=== PATIENT | male | born 1955 | race African-American/Black ===

== ENCOUNTER 2018-04-14 07:32 | Emergency (ER) | payer OTHER ==
[2018-04-14 07:52] VITALS: BMI 25.0
--- NOTE | 2018-04-14 09:05 | PDOC ---
Attending Attestation - Resident Resident Name: Quintin Smith - ED Attending Attestation I have performed the following: I have examined & evaluated the patient, The case was reviewed & discussed with the resident, I agree w/resident's findings & plan, Exceptions are as noted - HPI HPI: 04/14/18 09:02 62y M hx of dm, presents with complaint of knee pain and flank pain. L knee pain: few days of pain, decrease range of motion, no leg swelling, no calf pain, no associated sob, hemoptysis - had done R flank pain: pain when he takes a deep breath x 3 days, worse when he is twisting/turning in bed and lifting his R arm, no associated sob, hemoptysis, larios pt presents today due to the pain not resolving on exam pt appears a bit dischevelled abd soft nontender no focal tenderness on his back/flank/knee or anywhere else. no edema normal ROM of extremities will obtain xray of chest tjo r/o pna or fx no signs of sweling, neg homans to suggest dvt no focal tendeness to suggest bony injury, suspect possible oa/overuse. will give pain meds will dc with pmd fu - Physicial Exam PE: 04/15/18 07:38 see above - Medical Decision Making 04/14/18 12:23 labs reviewed noted for mildly elevated bgm, pt notes he does not take his metformin. cxr neg for fx pt feeling improved will dc with pmd fu return precautions were discussed I discussed the physical exam findings, ancillary test results and final diagnoses with the patient. I answered all of the patient's questions. The patient was satisfied with the care received and felt comfortable with the discharge plan and treatment plan. The patient will call their primary care physician within 24 hours to arrange follow-up and will return to the Emergency Department with any new, persistent or worsening symptoms.
--- NOTE | 2018-04-14 09:13 | PDOC ---
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 Flank pain is exacerbated when he takes a deep breath and when moving from lying to sitting position. Takes percocet daily for chronic knee pain. Admits to 20lbs weight loss for the past 2 months. Past History - Past Medical History Allergies/Adverse Reactions: Allergies Allergy/AdvReac Type Severity Reaction Status Date / Time No Known Allergies Allergy Verified 04/14/18 07:48 Home Medications: Ambulatory Orders Metformin HCl [Glucophage] 1,000 mg PO DAILY 04/14/18 CVA: No COPD: No GI Disorders: Yes (SIGMOID COLON REMOVED.RUPTURED) HTN: Yes - Surgical History Abdominal Surgery: Yes (SIGMOID COLON REMOVED) - Immunization History Immunization Up to Date: Yes - Suicide/Smoking/Psychosocial Hx Smoking Status: Yes Smoking History: Current every day smoker Number of Cigarettes Smoked Daily: 20 Information on smoking cessation initiated: No Hx Alcohol Use: No Drug/Substance Use Hx: No Substance Use Type: None Review of Systems - Review of Systems Able to Perform ROS?: Yes Is the patient limited [place]anian proficient: No Constitutional: Yes: Loss of Appetite, Unintentional Wgt. Loss, Unexplained wgt Loss HEENTM: No: Symptoms Reported Respiratory: No: Symptoms reported Cardiac (ROS): No: Symptoms Reported ABD/GI: No: Symptoms Reported Musculoskeletal: Yes: See HPI Integumentary: No: Symptoms Reported Neurological: No: Symptoms reported All Other Systems: Reviewed and Negative *Physical Exam - Vital Signs Last Vital Signs Temp Pulse Resp BP Pulse Ox 99.1 F 104 H 16 135/70 96 04/14/18 07:48 04/14/18 07:48 04/14/18 07:48 04/14/18 07:48 04/14/18 07:48 - Physical Exam General Appearance: Yes: Disheveled, Thin HEENT: positive: EOMI, TOBY, Normal ENT Inspection Respiratory/Chest: positive: Lungs Clear, Normal Breath Sounds, Other (some tenderness along lower right ribs). negative: Chest Tender, Respiratory Distress Cardiovascular: positive: Regular Rhythm, Regular Rate, S1, S2 Gastrointestinal/Abdominal: positive: Normal Bowel Sounds, Flat, Soft, Other. negative: Tender Musculoskeletal: positive: Normal Inspection. negative: CVA Tenderness Extremity: positive: Other (no leg swelling. ) Integumentary: positive: Normal Color, Dry Neurologic: positive: Fully Oriented, Alert, Normal Response ED Treatment Course - LABORATORY CBC & Chemistry Diagram: 04/14/18 09:12 04/14/18 09:16 Medical Decision Making - Medical Decision Making 04/14/18 09:57 62m complain of right flank pain and left knee pain Will send labs 04/14/18 10:27 CXR: Unremarkable examination without evidence of acute lung disease. 04/14/18 12:52 Patient blood glucose 308 doesn't take his metformin. Counseled about importance of treating his diabetes. 1L NS and toradol dc *DC/Admit/Observation/Transfer Diagnosis at time of Disposition: Hyperglycemia - Referrals Referrals: Guanakito Vaughan MD [Primary Care Provider] - - Patient Instructions Printed Discharge Instructions: DI for Knee Pain Additional Instructions: Follow up with Dr. Guanakito Vaughan for your diabetes within 2 days. Call him as soon as you're discharged. Come back to the ER for any new, worsening or concerning symptoms. - Post Discharge Activity
[2018-04-14] MEDS ORDERED: SODIUM CHLORIDE 1,000 ML IV STA (09:14)
[2018-04-14 09:46] LABS: BASO % 1.1 % (0-2.0); EOS % 1.5 % (0-4.5); HEMATOCRIT 42.6 % (35.4-49); HEMOGLOBIN 14.3 GM/dL (11.7-16.9); LYMPH % 26.7 % (8-40); MCH 28.9 pg (25.7-33.7); MCHC 33.6 g/dl (32.0-35.9); MEAN CELL VOLUME 85.9 fl (80-96); MEAN PLT VOLUME 8.8 fl (7.5-11.1); MONO % 10.9 % (3.8-10.2); NEUT % 59.8 % (42.8-82.8); PLATELET COUNT 183 K/MM3 (134-434); RBC 4.95 M/mm3 (4.00-5.60); RDW 14.6 % (11.9-15.9); WHITE BLOOD COUNT 8.4 K/mm3 (4.0-10.0)
[2018-04-14 09:58] LABS: URINE APPEARANCE CLEAR; URINE BILIRUBIN NEGATIVE (<2.0 mg/dL); URINE BLOOD NEGATIVE (NEGATIVE); URINE COLOR YELLOW; URINE GLUCOSE (UA) 3+ (NEGATIVE); URINE KETONE TRACE (NEGATIVE); URINE LEUK ESTERASE NEGATIVE (NEGATIVE); URINE NITRITE NEGATIVE (NEGATIVE); URINE PROTEIN NEGATIVE (NEGATIVE); URINE UROBILINOGEN NEGATIVE mg/dL (0.2-1.0)
[2018-04-14 10:10] LABS: ALBUMIN 3.7 g/dl (3.4-5.0); BILIRUBIN,TOTAL 0.5 mg/dL (0.2-1.0); BLOOD UREA NITROGEN 11 mg/dL (7-18); CALCIUM 9.5 mg/dL (8.5-10.1); CHLORIDE 101 mmol/L (98-107); POTASSIUM 4.3 mmol/L (3.5-5.1); SGOT/AST 9 U/L (15-37); SGPT/ALT 21 U/L (12-78); SODIUM 137 mmol/L (136-145)
[2018-04-14 10:12] LABS: ALK PHOS 125 U/L (45-117); TOT PROT 7.2 g/dl (6.4-8.2)
[2018-04-14 10:53] LABS: GLUCOSE,RANDOM 308 mg/dL (74-106)
[2018-04-14] MEDS ORDERED: KETOROLAC TROMETHAMINE 15 MG/ML VIAL IVPUSH ONE (11:43)
[2018-04-14] MEDS ORDERED: KETOROLAC TROMETHAMINE 15 MG/ML VIAL ONE (12:03)
[2018-04-14 12:15] VITALS: TEMP 98.6
[2018-04-14 12:34] LABS: ANION GAP 9 (8-16); CO2 27 mmol/L (21-32)
[2018-04-14 13:44] VITALS: BP 134/86; PULSE 81
== END 2018-04-14 14:01 | disposition home or self-care (01) ==
LOC: JER 07:32
PROC: 3E0337Z Introduction of Electrolytic and Water Balance Substance into Peripheral Vein, Percutaneous Approach (ICD-10-PCS; principal; 2018-04-14)
PROC: 3E0333Z Introduction of Anti-inflammatory into Peripheral Vein, Percutaneous Approach (ICD-10-PCS; 2018-04-14)
DX: R10.31 Right lower quadrant pain (principal); M25.562 Pain in left knee; E11.65 Type 2 diabetes mellitus with hyperglycemia; Z79.84 Long term (current) use of oral hypoglycemic drugs; Z91.14 Patient's other noncompliance with medication regimen; Z90.49 Acquired absence of other specified parts of digestive tract
CPT/HCPCS: 36415; 71046-TC-FY; 80053; 81003; 82962; 85025; 96361; 96374; 99283-25; J7030

== ENCOUNTER 2022-06-20 22:40 | Emergency (ER) | payer OTHER ==
[2022-06-20 23:00] VITALS: BP 145/64; PULSE 84; RESP 20; TEMP 97.9; BMI 24.4
[2022-06-21 01:02] LABS: BASO % 1.5 % (0-2.0); EOS % 2.7 % (0-4.5); HEMATOCRIT 42.1 % (35.4-49); HEMOGLOBIN 14.1 GM/dL (11.7-16.9); LYMPH % 39.6 % (8-40); MCH 28.5 pg (25.7-33.7); MCHC 33.4 g/dl (32.0-35.9); MEAN CELL VOLUME 85.3 fl (80-96); MEAN PLT VOLUME 7.9 fl (7.5-11.1); MONO % 7.5 % (3.8-10.2); NEUT % 48.7 % (42.8-82.8); PLATELET COUNT 228 10^3/uL (134-434); RBC 4.94 M/mm3 (4.00-5.60); RDW 15.7 % (11.9-15.9); WHITE BLOOD COUNT 7.3 K/mm3 (4.0-10.0)
[2022-06-21 01:08] LABS: URINE APPEARANCE CLEAR; URINE BILIRUBIN NEGATIVE (NEGATIVE); URINE COLOR YELLOW; URINE GLUCOSE (UA) NEGATIVE (NEGATIVE); URINE KETONE TRACE (NEGATIVE); URINE LEUK ESTERASE NEGATIVE (NEGATIVE); URINE NITRITE NEGATIVE (NEGATIVE); URINE PROTEIN NEGATIVE (NEGATIVE); URINE UROBILINOGEN 0.2 mg/dL (0.2-1.0)
[2022-06-21 01:10] LABS: INR 0.99 (0.83-1.09); PROTHROMBIN TIME (PATIENT) 11.4 SEC (9.7-13.0)
[2022-06-21 01:12] LABS: ACTIVATED PTT 31.7 SECONDS (25.2-36.5)
[2022-06-21 01:25] LABS: BLOOD UREA NITROGEN 11.2 mg/dL (7-18); CALCIUM 9.3 mg/dL (8.5-10.1)
[2022-06-21 01:27] LABS: CREATININE 1.1 mg/dL (0.55-1.3)
[2022-06-21 01:29] LABS: BILIRUBIN,TOTAL 0.4 mg/dL (0.2-1); TOT PROT 7.6 g/dl (6.4-8.2)
== END 2022-06-21 03:38 | disposition left against medical advice (07) ==
LOC: JER 22:40
DX: R10.84 Generalized abdominal pain (principal)
CPT/HCPCS: 0241U-QW; 36415; 80053; 81003; 83605; 84484; 85025; 85610; 85730; 87086; 93005; 93010; 99284-25

== ENCOUNTER 2025-04-24 14:40 | Inpatient (IN) | payer OTHER ==
[2025-04-24] MEDS ORDERED: ACETAMINOPHEN INJECTION 100 ML ONE (16:57)
[2025-04-24] MEDS ORDERED: VANCOMYCIN 1 GM PREMIX (F) 1 GM/200 ML BAG ONE (16:57)
[2025-04-24] MEDS: ACETAMINOPHEN 1000 MG/100 ML BAG IVPB ONE (17:16)
[2025-04-24] MEDS: VANCOMYCIN 1,000 MG in DEXTROSE 5%-WATER - 250 ML IVPB ONE (17:16)
[2025-04-24] MEDS ORDERED: PIPERACILLIN/TAZOB 4.5 GM 4.5 GM/100 ML BAG IVPB ONE (18:34)
[2025-04-24 18:37] LABS: BASOPHILS # 0.05 x10^3/uL (0.01-0.08); MEAN PLT VOLUME 10.5 fl (9.4-12.4)
[2025-04-24 18:39] LABS: ABSOLUTE IMMATURE GRANULOCYTES 0.02 x10^3/uL (0.0-0.031); EOSINOPHIL % 1.3 % (0.8-7.0); EOSINOPHILS # 0.11 x10^3/uL (0.04-0.54); MCHC 34.0 g/dl (32.3-36.5); MEAN CELL VOLUME 83.7 fl (79.0-92.2); MONOCYTE # 0.71 x10^3/uL (0.30-0.82); MONOCYTE % 8.4 % (5.3-12.2); RDW 14.0 % (12.2-16.4)
[2025-04-24] MEDS: PIPERACILLIN/TAZOB 4.5 GM 4.5 GM/100 ML BAG IVPB ONE (18:41)
[2025-04-24 18:54] LABS: INR 1.09 (0.83-1.09); PROTHROMBIN TIME (PATIENT) 12.0 SEC (9.7-13.0)
[2025-04-24 18:57] LABS: ACTIVATED PTT 27.7 SECONDS (25.2-36.5)
[2025-04-24 19:32] LABS: ERYTHROCYTE SEDIMENTATION RATE 31 mm/hr (0-20)
[2025-04-24 19:48] LABS: HCV DIAGNOSTIC IN-HOUSE W/RFLX NON-REACTIVE (NONREACTIVE); HIV INTERPRETATION NEGATIVE (NEGATIVE)
[2025-04-24 20:33] LABS: GLUCOSE,RANDOM 363.0 mg/dL (74-106)
[2025-04-24 20:34] LABS: CO2 24.0 mmol/L (21-32)
[2025-04-24 20:36] LABS: CREATININE 1.0 mg/dL (0.55-1.3)
[2025-04-24 20:37] LABS: SGOT/AST 15.0 U/L (15-37); SGPT/ALT 17.0 U/L (13-61)
[2025-04-24 20:38] LABS: TOT PROT 6.6 g/dl (6.4-8.2)
[2025-04-24 20:39] LABS: ALK PHOS 150.0 U/L (45-117)
[2025-04-24] MEDS ORDERED: DOCUSATE SODIUM 100 MG CAPSULE (FP) PO PRN (21:50)
[2025-04-24] MEDS ORDERED: INSULIN ASPART SLIDING SCALE (NOVOLOG) 1 VIAL SQ ONE (22:40)
[2025-04-24] MEDS: INSULIN ASPART SLIDING SCALE (NOVOLOG) 1 VIAL SQ SCH (22:41)
[2025-04-25 00:04] VITALS: BMI 21.7
[2025-04-25] MEDS: ACETAMINOPHEN 1000 MG/100 ML BAG IVPB PRN (01:39)
[2025-04-25] MEDS: PIPERACILLIN/TAZOB 3.375 GM 3.375 GM in DEXTROSE 5%-WATER - 50 ML IVPB SCH ×3 (02:08→19:01)
[2025-04-25] MEDS: VANCOMYCIN/WATER FOR INJ (PEG) 1 GM/200 ML BAG IVPB SCH (05:18)
[2025-04-25] MEDS: EMPAGLIFLOZIN (JARDIANCE) 25 MG TABLET PO SCH (06:31)
[2025-04-25 08:35] LABS: MCHC 33.3 g/dl (32.3-36.5); MEAN CELL VOLUME 84.6 fl (79.0-92.2); MEAN PLT VOLUME 10.0 fl (9.4-12.4); RDW 13.7 % (12.2-16.4)
[2025-04-25 08:53] LABS: CO2 27.0 mmol/L (21-32); GLUCOSE,RANDOM 274.0 mg/dL (74-106)
[2025-04-25 08:56] LABS: CREATININE 0.9 mg/dL (0.55-1.3)
[2025-04-25] MEDS: ENOXAPARIN NA (PORCINE) 40 MG/0.4 ML DISP.SYRIN SQ SCH (10:51)
[2025-04-25] MEDS: NICOTINE 21 MG/24 HOURS TOPICAL PATCH TD SCH (15:31)
[2025-04-25] MEDS: VANCOMYCIN 1,000 MG in DEXTROSE 5%-WATER - 250 ML IVPB SCH (15:36)
[2025-04-25] MEDS: DOXYCYCLINE HYCLATE 100 MG CAPSULE PO SCH (17:46)
[2025-04-25] MEDS: GABAPENTIN 300 MG CAPSULE PO SCH (21:34)
[2025-04-25] MEDS: KETOROLAC TROMETHAMINE 15 MG/ML VIAL IVPUSH ONE (23:55)
[2025-04-26] MEDS: KETOROLAC TROMETHAMINE 15 MG/ML VIAL IM ONE (00:43)
[2025-04-26] MEDS: metFORMIN HCL 500 MG TABLET (FP) PO SCH (06:21)
[2025-04-26 08:05] LABS: ABSOLUTE IMMATURE GRANULOCYTES 0.02 x10^3/uL (0.0-0.031); BASOPHILS # 0.05 x10^3/uL (0.01-0.08); EOSINOPHIL % 2.3 % (0.8-7.0); EOSINOPHILS # 0.14 x10^3/uL (0.04-0.54); MCHC 32.8 g/dl (32.3-36.5); MEAN CELL VOLUME 85.8 fl (79.0-92.2); MEAN PLT VOLUME 9.9 fl (9.4-12.4); MONOCYTE # 0.51 x10^3/uL (0.30-0.82); MONOCYTE % 8.3 % (5.3-12.2); RDW 13.9 % (12.2-16.6)
[2025-04-26 08:36] LABS: CO2 29.0 mmol/L (21-32); GLUCOSE,RANDOM 224.0 mg/dL (74-106)
[2025-04-26 08:39] LABS: CREATININE 1.0 mg/dL (0.55-1.3); SGOT/AST 11.0 U/L (15-37); SGPT/ALT 15.0 U/L (13-61); TOT PROT 5.9 g/dl (6.4-8.2)
[2025-04-26 08:43] LABS: ALK PHOS 117.0 U/L (45-117)
[2025-04-26] MEDS ORDERED: PATIENT'S OWN MEDICATION (NON-FORMULARY) (Empagliflozin 25 MG Tablet) PO SCH (10:00)
[2025-04-26] MEDS: COLLAGENASE CLOSTRIDIUM HIST. 30 GRAMS TUBE TP SCH (10:36)
[2025-04-26] MEDS: DOXYCYCLINE HYCLATE 100 MG TABLET PO SCH (11:07)
[2025-04-26] MEDS: ACETAMINOPHEN 325 MG TABLET (FP) PO ONE (14:19)
[2025-04-27] MEDS: ACETAMINOPHEN 1000 MG/100 ML BAG IVPB PRN (02:33)
[2025-04-27 16:48] LABS: ABSOLUTE IMMATURE GRANULOCYTES 0.03 x10^3/uL (0.0-0.031); BASOPHILS # 0.06 x10^3/uL (0.01-0.08); EOSINOPHIL % 2.6 % (0.8-7.0); EOSINOPHILS # 0.19 x10^3/uL (0.04-0.54); MCHC 32.9 g/dl (32.3-36.5); MEAN CELL VOLUME 86.2 fl (79.0-92.2); MEAN PLT VOLUME 10.4 fl (9.4-12.4); MONOCYTE # 0.73 x10^3/uL (0.30-0.82); MONOCYTE % 9.8 % (5.3-12.2); RDW 14.2 % (12.2-16.6)
[2025-04-27 17:18] LABS: CO2 29.0 mmol/L (21-32); GLUCOSE,RANDOM 155.0 mg/dL (74-106)
[2025-04-27 17:21] LABS: CREATININE 1.2 mg/dL (0.55-1.3); SGOT/AST 21.0 U/L (15-37); SGPT/ALT 26.0 U/L (13-61)
[2025-04-27 17:23] LABS: TOT PROT 6.7 g/dl (6.4-8.2)
[2025-04-27 17:46] LABS: ALK PHOS 148.0 U/L (45-117)
[2025-04-28] MEDS: DIPHENOXYLATE 2.5/ATROPINE.025 1 COMBO TABLET PO ONE (01:01)
[2025-04-28] MEDS: KETOROLAC TROMETHAMINE 15 MG/ML VIAL IVPUSH ONE (05:57)
[2025-04-28 08:21] LABS: MCHC 32.3 g/dl (32.3-36.5); MEAN CELL VOLUME 86.1 fl (79.0-92.2); MEAN PLT VOLUME 10.1 fl (9.4-12.4); RDW 14.2 % (12.2-16.6)
[2025-04-28 08:34] LABS: GLUCOSE,RANDOM 160.0 mg/dL (74-106)
[2025-04-28 08:35] LABS: CO2 29.0 mmol/L (21-32)
[2025-04-28 08:37] LABS: CREATININE 1.1 mg/dL (0.55-1.3)
[2025-04-28 08:38] LABS: SGOT/AST 21.0 U/L (15-37); SGPT/ALT 27.0 U/L (13-61)
[2025-04-28 08:40] LABS: TOT PROT 5.9 g/dl (6.4-8.2)
[2025-04-28 08:42] LABS: ALK PHOS 111.0 U/L (45-117)
[2025-04-28] MEDS: LACTOBACILLUS ACIDOPHILUS 1 TABLET PO SCH (09:03)
[2025-04-28] MEDS: MULTIVITAMINS (DAILY MVI) TABLET (FP) PO SCH (09:03)
[2025-04-28] MEDS: INSULIN GLARGINE (LANTUS) 100 UNITS/ML UNITS SQ SCH (21:42)
[2025-04-29 07:32] LABS: MCHC 33.1 g/dl (32.3-36.5); MEAN CELL VOLUME 86.6 fl (79.0-92.2); MEAN PLT VOLUME 10.1 fl (9.4-12.4); RDW 14.1 % (12.2-16.6)
[2025-04-29 07:57] LABS: CO2 29.0 mmol/L (21-32); GLUCOSE,RANDOM 194.0 mg/dL (74-106)
[2025-04-29 08:00] LABS: CREATININE 1.1 mg/dL (0.55-1.3); SGOT/AST 44.0 U/L (15-37); SGPT/ALT 45.0 U/L (13-61)
[2025-04-29 08:02] LABS: TOT PROT 5.9 g/dl (6.4-8.2)
[2025-04-29 08:03] LABS: ALK PHOS 106.0 U/L (45-117)
[2025-04-29] MEDS ORDERED: LIDOCAINE HCL 1%, 10 MG/ML (20ML VIAL) ONE (14:10)
[2025-04-29] MEDS ORDERED: HEPARIN NA (PORCINE) 5,000 UNITS/ML 1ML VIAL ONE ×2 (14:10→15:55)
[2025-04-29] MEDS ORDERED: PROPOFOL 60 ML ONE (15:16)
[2025-04-29] MEDS ORDERED: MIDAZOLAM HCL 2 MG/2 ML SINGLE DOSE VIAL ONE (15:16)
[2025-04-29] MEDS: LIDOCAINE HCL 1%, 10 MG/ML (20ML VIAL) NR ONE ×2 (15:44)
[2025-04-29] MEDS ORDERED: DOCUSATE SODIUM 100 MG CAPSULE (FP) PO PRN (17:13)
[2025-04-29] MEDS ORDERED: CLOPIDOGREL BISULFATE 75 MG TABLET (FP) ONE (17:32)
[2025-04-29] MEDS ORDERED: ACETAMINOPHEN INJECTION 100 ML ONE (17:32)
[2025-04-29] MEDS: CLOPIDOGREL BISULFATE 75 MG TABLET (FP) PO SCH (17:34)
[2025-04-29] MEDS: ACETAMINOPHEN 1000 MG/100 ML BAG IVPB ONE (17:34)
[2025-04-29] MEDS: LACTATED RINGERS SOLUTION 1,000 ML IV SCH (17:35)
[2025-04-29] MEDS ORDERED: ASPIRIN 81 MG CHEWABLE TABLETS ONE (17:37)
[2025-04-29] MEDS: ASPIRIN 81 MG CHEWABLE TABLETS PO SCH (17:37)
[2025-04-29] MEDS: PIPERACILLIN/TAZOB 3.375 GM 3.375 GM in DEXTROSE 5%-WATER - 50 ML IVPB SCH (18:11)
[2025-04-29] MEDS: DOXYCYCLINE HYCLATE 100 MG TABLET PO SCH (18:11)
[2025-04-29] MEDS: GABAPENTIN 300 MG CAPSULE PO SCH (21:59)
[2025-04-29] MEDS: INSULIN GLARGINE (LANTUS) 100 UNITS/ML UNITS SQ SCH (23:21)
[2025-04-29] MEDS: INSULIN ASPART SLIDING SCALE (NOVOLOG) 1 VIAL SQ SCH (23:22)
[2025-04-29] MEDS: ACETAMINOPHEN 1000 MG/100 ML BAG IVPB PRN (23:28)
[2025-04-30] MEDS: EMPAGLIFLOZIN (JARDIANCE) 25 MG TABLET PO SCH (07:17)
[2025-04-30 08:07] LABS: MCHC 32.7 g/dl (32.3-36.5); MEAN CELL VOLUME 86.5 fl (79.0-92.2); MEAN PLT VOLUME 10.1 fl (9.4-12.4); RDW 14.3 % (12.2-16.6)
[2025-04-30 08:30] LABS: GLUCOSE,RANDOM 152.0 mg/dL (74-106)
[2025-04-30 08:31] LABS: CO2 29.0 mmol/L (21-32)
[2025-04-30 08:34] LABS: CREATININE 1.0 mg/dL (0.55-1.3); SGOT/AST 36.0 U/L (15-37); SGPT/ALT 46.0 U/L (13-61)
[2025-04-30 08:35] LABS: TOT PROT 5.5 g/dl (6.4-8.2)
[2025-04-30 08:37] LABS: ALK PHOS 90.0 U/L (45-117)
[2025-04-30] MEDS: MULTIVITAMINS (DAILY MVI) TABLET (FP) PO SCH (09:42)
[2025-04-30] MEDS: LACTOBACILLUS ACIDOPHILUS 1 TABLET PO SCH (09:42)
[2025-04-30] MEDS: ENOXAPARIN NA (PORCINE) 40 MG/0.4 ML DISP.SYRIN SQ SCH (09:45)
[2025-04-30] MEDS: NICOTINE 21 MG/24 HOURS TOPICAL PATCH TD SCH (09:45)
[2025-04-30] MEDS: COLLAGENASE CLOSTRIDIUM HIST. 30 GRAMS TUBE TP SCH (14:12)
[2025-05-01 08:02] LABS: ABSOLUTE IMMATURE GRANULOCYTES 0.02 x10^3/uL (0.0-0.031); BASOPHILS # 0.03 x10^3/uL (0.01-0.08); EOSINOPHIL % 2.7 % (0.8-7.0); EOSINOPHILS # 0.18 x10^3/uL (0.04-0.54); MCHC 32.6 g/dl (32.3-36.5); MEAN CELL VOLUME 85.8 fl (79.0-92.2); MEAN PLT VOLUME 10.1 fl (9.4-12.4); MONOCYTE # 0.81 x10^3/uL (0.30-0.82); MONOCYTE % 12.0 % (5.3-12.2); RDW 14.4 % (12.2-16.6)
[2025-05-01 08:47] LABS: CO2 27.0 mmol/L (21-32); GLUCOSE,RANDOM 94.0 mg/dL (74-106)
[2025-05-01 08:50] LABS: CREATININE 0.8 mg/dL (0.55-1.3); SGOT/AST 25.0 U/L (15-37); SGPT/ALT 42.0 U/L (13-61)
[2025-05-01 08:52] LABS: ALK PHOS 86.0 U/L (45-117)
[2025-05-01 08:53] LABS: TOT PROT 5.5 g/dl (6.4-8.2)
[2025-05-01] MEDS ORDERED: LIDOCAINE HCL/PF 2% SDV 5ML VIAL ONE (10:40)
[2025-05-01] MEDS ORDERED: MIDAZOLAM HCL 2 MG/2 ML SINGLE DOSE VIAL ONE (10:40)
[2025-05-01] MEDS ORDERED: PROPOFOL 20 ML ONE ×2 (10:40→11:19)
[2025-05-01] MEDS ORDERED: ONDANSETRON 4 MG/2 ML VIAL IVPUSH PRN ×2 (10:49→12:25)
[2025-05-01] MEDS ORDERED: PROMETHAZINE HCL 25 MG/1 ML VIAL IVPB PRN ×2 (10:49→12:25)
[2025-05-01] MEDS ORDERED: LIDOCAINE HCL 1%, 10 MG/ML (20ML VIAL) ONE (11:01)
[2025-05-01] MEDS ORDERED: BUPIVACAINE HCL/PF 0.5% (5MG/ML) 10 ML VIAL ONE (11:02)
[2025-05-01] MEDS: LIDOCAINE HCL 1%, 10 MG/ML (20ML VIAL) INF ONE (12:11)
[2025-05-01] MEDS ORDERED: DOCUSATE SODIUM 100 MG CAPSULE (FP) PO PRN (12:25)
[2025-05-01] MEDS ORDERED: LACTATED RINGERS SOLUTION 1,000 ML IV SCH (12:25)
[2025-05-01] MEDS: LACTATED RINGERS SOLUTION 1,000 ML IV SCH (14:21)
[2025-05-01] MEDS: ASPIRIN 81 MG CHEWABLE TABLETS PO ONE (15:16)
[2025-05-01] MEDS: CLOPIDOGREL BISULFATE 75 MG TABLET (FP) PO ONE (15:16)
[2025-05-01] MEDS: GABAPENTIN 300 MG CAPSULE PO SCH (15:16)
[2025-05-01] MEDS: PIPERACILLIN/TAZOB 3.375 GM 3.375 GM in DEXTROSE 5%-WATER - 50 ML IVPB SCH (18:05)
[2025-05-01] MEDS: INSULIN ASPART SLIDING SCALE (NOVOLOG) 1 VIAL SQ SCH (18:05)
[2025-05-01] MEDS: DOXYCYCLINE HYCLATE 100 MG TABLET PO SCH (18:06)
[2025-05-01] MEDS: INSULIN GLARGINE (LANTUS) 100 UNITS/ML UNITS SQ SCH (21:31)
[2025-05-02] MEDS: EMPAGLIFLOZIN (JARDIANCE) 25 MG TABLET PO SCH (06:05)
[2025-05-02] MEDS: ACETAMINOPHEN 1000 MG/100 ML BAG IVPB PRN (09:58)
[2025-05-02] MEDS: CLOPIDOGREL BISULFATE 75 MG TABLET (FP) PO SCH (09:59)
[2025-05-02] MEDS: ENOXAPARIN NA (PORCINE) 40 MG/0.4 ML DISP.SYRIN SQ SCH (09:59)
[2025-05-02] MEDS: MULTIVITAMINS (DAILY MVI) TABLET (FP) PO SCH (09:59)
[2025-05-02] MEDS: LACTOBACILLUS ACIDOPHILUS 1 TABLET PO SCH (09:59)
[2025-05-02] MEDS: NICOTINE 21 MG/24 HOURS TOPICAL PATCH TD SCH (09:59)
[2025-05-02] MEDS: COLLAGENASE CLOSTRIDIUM HIST. 30 GRAMS TUBE TP SCH (10:00)
[2025-05-02] MEDS: ASPIRIN 81 MG CHEWABLE TABLETS PO SCH (10:00)
[2025-05-03] MEDS: AMOX TR/POT CLAV 500MG/125MG TABLETS (FP) PO SCH (12:17)
[2025-05-05 08:52] LABS: ABSOLUTE IMMATURE GRANULOCYTES 0.02 x10^3/uL (0.0-0.031); BASOPHILS # 0.07 x10^3/uL (0.01-0.08); EOSINOPHIL % 2.4 % (0.8-7.0); EOSINOPHILS # 0.16 x10^3/uL (0.04-0.54); MCHC 32.2 g/dl (32.3-36.5); MEAN CELL VOLUME 86.6 fl (79.0-92.2); MEAN PLT VOLUME 9.9 fl (9.4-12.4); MONOCYTE # 0.91 x10^3/uL (0.30-0.82); MONOCYTE % 13.9 % (5.3-12.2); RDW 14.6 % (12.2-16.6)
[2025-05-05 09:28] LABS: CO2 27.0 mmol/L (21-32); GLUCOSE,RANDOM 115.0 mg/dL (74-106)
[2025-05-05 09:30] LABS: CREATININE 1.0 mg/dL (0.55-1.3); SGPT/ALT 51.0 U/L (13-61)
[2025-05-05 09:31] LABS: SGOT/AST 23.0 U/L (15-37); TOT PROT 7.1 g/dl (6.4-8.2)
[2025-05-05 09:33] LABS: ALK PHOS 113.0 U/L (45-117)
[2025-05-05] MEDS ORDERED: INSULIN ASPART SLIDING SCALE (NOVOLOG) 1 VIAL SQ ONE (11:38)
[2025-05-05] MEDS: MAG HYDROX/AL HYDROX/SIMETH 30 ML UNIT-DOSE CUP PO ONE (23:52)
[2025-05-06 10:56] VITALS: BP 129/81; PULSE 83; RESP 20; TEMP 98
== END 2025-05-06 12:45 | disposition home health service (06) | DRG 253 ==
LOC: JER 14:40 → JERBED 18:04 → J7W 23:22
PROVIDERS: ADMIT Internal Medicine; ATTEND Internal Medicine
PROC: 047M3Z1 Dilation of Right Popliteal Artery using Drug-Coated Balloon, Percutaneous Approach (ICD-10-PCS; 2025-04-29)
PROC: 047T3ZZ Dilation of Right Peroneal Artery, Percutaneous Approach (ICD-10-PCS; 2025-04-29)
PROC: 047H3DZ Dilation of Right External Iliac Artery with Intraluminal Device, Percutaneous Approach (ICD-10-PCS; principal; 2025-04-29 15:00)
PROC: 0JBQ0ZZ Excision of Right Foot Subcutaneous Tissue and Fascia, Open Approach (ICD-10-PCS; 2025-05-01)
DX: E11.52 Type 2 diabetes mellitus with diabetic peripheral angiopathy with gangrene (principal); I96 Gangrene, not elsewhere classified; L03.115 Cellulitis of right lower limb; L97.319 Non-pressure chronic ulcer of right ankle with unspecified severity; E11.622 Type 2 diabetes mellitus with other skin ulcer; S90.551A Superficial foreign body, right ankle, initial encounter; L08.9 Local infection of the skin and subcutaneous tissue, unspecified; I10 Essential (primary) hypertension; F17.210 Nicotine dependence, cigarettes, uncomplicated; E11.65 Type 2 diabetes mellitus with hyperglycemia; X58.XXXA Exposure to other specified factors, initial encounter; Y93.9 Activity, unspecified; Y92.89 Other specified places as the place of occurrence of the external cause; Y99.9 Unspecified external cause status; E78.5 Hyperlipidemia, unspecified
CPT/HCPCS: 36415; 73610-TC-RT-FY; 73630-TC-RT-FY; 75635-TC; 76000-TC-FY; 80048; 80053; 82962; 83036; 85025; 85027; 85610; 85651; 85730; 86140; 86803; 87389; 88304-TC; 93922; 93925-TC; 94760; 97116-GP; 97162-GP; 99285-25; C1760; C1769; C1876; C1894; J1644; Q9967